=== PATIENT | female | born 1990 | race African-American/Black ===

== ENCOUNTER 2017-07-05 05:43 | Inpatient (IN) | payer BC ==
[2017-07-05] MEDS ORDERED: Lactated Ringer's 1,000 ML IV SCH ×3 (06:19→12:46)
[2017-07-05] MEDS ORDERED: Promethazine HCl 25 MG/ML VIAL IM PRN ×2 (06:19→11:15)
[2017-07-05] MEDS ORDERED: Ondansetron HCl/PF 4 MG/2 ML Vial IVP PRN ×3 (06:19→11:22)
[2017-07-05 06:28] VITALS: BMI 48.0
[2017-07-05] MEDS ORDERED: CEFAZOLIN/Water 2 GM/20 ML SYRINGE SLOW IVP SCH (06:30)
[2017-07-05] MEDS ORDERED: Bicitra 30 ML UDCUP PO SCH (06:30)
[2017-07-05 06:51] LABS: Hemoglobin 11.2 g/dL (12.0-16.0); Mean Corpuscular HGB CONC 33.2 g/dL (32.0-36.0); Mean Corpuscular Hemoglobin 28.9 pg (27.0-31.0); Mean Corpuscular Volume 87.1 fl (81.0-99.0); Mean Platelet Volume 8.4 fL (7.4-10.4); Platelet Count 221 thou/uL (130-400); RBC Distribution Width 13.5 % (11.5-14.5); Red Blood Cell (RBC) Count 3.89 mill/uL (4.20-5.40); White Blood Cell (WBC) Count 6.1 thou/uL (4.8-10.8)
[2017-07-05] MEDS ORDERED: Morphine PF 1 MG/ML SYR ONE (07:18)
[2017-07-05] MEDS ORDERED: Oxytocin 10 UNITS/ML VIAL ONE (07:19)
[2017-07-05] MEDS ORDERED: PHENYLEPHRINE-NS 100 MCG/ML 10 ML SYRINGE ONE ×2 (07:19→11:54)
[2017-07-05] MEDS ORDERED: ePHEDrine/0.9% NaCl/PF SYRINGE 50 mg/10 ml ONE ×2 (07:19→11:54)
[2017-07-05] MEDS ORDERED: Ondansetron HCl/PF 4 MG/2 ML Vial ONE ×2 (07:19→11:54)
[2017-07-05] MEDS ORDERED: Ropivacaine 0.5% HCl/PF (150 MG/30 ML VIAL) ONE (07:20)
[2017-07-05 07:23] LABS: HBSAg Index 0.19 S/CO (0-0.99); Hep B Surf Ag Non-Reactive S/CO (NonReactive); Syphilis Antibody Nonreactive (Nonreactive); Syphilis Antibody Index 0.05 S/CO (<1.00 Non-Reactive)
[2017-07-05] MEDS ORDERED: Bupivacaine 0.75% W/DEXTROSE 8.25% 2 ML AMP ONE ×2 (07:23→07:55)
[2017-07-05] MEDS ORDERED: CEFAZOLIN 1 GM VIAL ONE (07:24)
[2017-07-05] MEDS ORDERED: Lidocaine 2% PF 5 ML VIAL ONE (07:26)
[2017-07-05] MEDS ORDERED: Lidocaine 1% PF 5 ML VIAL ONE (07:36)
[2017-07-05] MEDS ORDERED: Ketorolac Tromethamine 30 MG/ML VIAL ONE ×2 (08:35→11:54)
[2017-07-05] MEDS ORDERED: LR / Pitocin 40 units/1000 ml 1,000 ML ONE (09:00)
[2017-07-05] MEDS ORDERED: Promethazine HCl 25 MG SUPP PR PRN (11:15)
[2017-07-05] MEDS ORDERED: Eucerin (Mineral Oil/Petrolatum,White) 30 gm Jar TOP PRN (11:15)
[2017-07-05] MEDS ORDERED: Communication Order-Pharmacy FS SCH (11:15)
[2017-07-05] MEDS ORDERED: Naloxone HCl 0.4 mg/ml Vial IV PRN (11:15)
[2017-07-05] MEDS ORDERED: Naloxone HCl 0.4 mg/ml Vial IVP PRN ×2 (11:15)
[2017-07-05] MEDS ORDERED: diphenhydrAMINE 50 MG/ML VIAL IVP PRN (11:15)
[2017-07-05] MEDS ORDERED: Meperidine HCl/PF 25 MG/ML VIAL SLOW IVP PRN (11:22)
[2017-07-05] MEDS ORDERED: Meperidine HCl/PF 25 MG/ML VIAL ONE (11:31)
[2017-07-05] MEDS ORDERED: diphenhydrAMINE 25 MG CAP PO PRN (12:46)
[2017-07-05] MEDS ORDERED: Lanolin Ointment 7 GM TUBE TOP PRN (12:46)
[2017-07-05] MEDS ORDERED: Adacel (T-DAP) 0.5 ML VIAL IM ONE (12:46)
[2017-07-05] MEDS: Simethicone Chewable 80 MG TAB PO PRN (21:38)
[2017-07-05] MEDS ORDERED: Zolpidem Tartrate 5 MG TAB PO PRN (23:15)
[2017-07-05] MEDS ORDERED: HYDROcodone/Acetaminophen 5/325 mg Tablet PO PRN (23:15)
[2017-07-06] MEDS: Ketorolac Tromethamine 30 MG/ML VIAL IVP PRN ×2 (00:15→06:10)
[2017-07-06] MEDS: Prenatal Vitamin 1 TAB PO SCH (09:45)
[2017-07-06] MEDS: HYDROcodone/Acetaminophen 5/325 mg Tablet PO PRN ×2 (14:20→21:52)
--- NOTE | 2017-07-06 14:35 | DN ---
DATE OF SERVICE: 07/05/2017 ADMITTING DIAGNOSES: 1. A 27-year-old -[place] female, G2, P0-1-0-1, presents at 39 weeks for a scheduled repeat low transverse section. 2. History of a primary low transverse section at 35 and 4 for preeclampsia. 3. GBS negative. 4. Elevated body mass index of 50.2. 5. Anemia of . POSTOPERATIVE DIAGNOSES: 1. A 27-year-old -[place] female, G2, P0-1-0-1, presents at 39 weeks for a scheduled repeat low transverse section. 2. History of a primary low transverse section at 35 and 4 for preeclampsia. 3. GBS negative. 4. Elevated body mass index of 50.2. 5. Anemia of . 6. Live born male infant weighing 8 pounds 1 ounce with Apgars of 9 and 9 at 1 and 5 minutes respect ively. ANESTHESIA: Spinal. ESTIMATED BLOOD LOSS: 500 mL. IV FLUIDS: Crystalloid. SPECIAL MEDICATIONS: Ancef 3 grams IV school lunch monitor to the OR. CLINICAL HISTORY: This patient is a 27-year-old G2, P0-1-0-1, who presented to my office for obstetr unity psychiatric care [place] [facility]. She had a history of a previous premature delivery at 35 weeks and 4 days of a little gir l due to complications with preeclampsia on magnesium with severe blood pressures and edema. The pat ient opted for a repeat section at 39 weeks. She was monitored throughout the and had a normal 24-hour urine. She was kept on baby aspirin after 12 weeks gestation and was screened for elevated blood pressures or signs of preeclampsia, none were found on a repetitive and serial radha ting. The patient did have an elevated body mass index of 50 at the time of the beginning of the pre gnancy. She stayed within her weight gain goals of less than 5 pounds with only 5 pounds weight gain for the entire . The patient was also noted to have a slight anemia of without a ny platelet disorders. The risks, benefits and possible complications of a repeat section w ere discussed and the patient wished to proceed. DETAILS OF PROCEDURE: The patient was taken to the operating room where spinal anesthesia was obtain ed. She was laid in the supine position with a leftward tilt and doptones were retrieved on the baby at 125. After testing for adequate anesthesia and proper draping, the incision was made in a Pfanne nstiel manner, retracting and removing the old scar with a scalpel and this incision was then taken d own to the fascia where the fascia was nicked in the midline and extended bilaterally with sharp and blunt dissection. Bleeding was corrected with Bovie cautery. The rectus muscles were then released from the fascia with a grasp of the superior border with the Ciera clamps x2. This proved somewhat difficult because of the scarring from her previous surgery. The patient did have omentum attached t o her fascia as well as to the peritoneum. Once the omentum was taken off of the rectal sheath and t he rectus muscles were identified. The separation in the midline was performed and this was extended with a combination of sharp and blunt dissection. The bladder blade was then placed in a sweep of t he surgeon's hand over the anterior surface of the uterus was performed with no adhesions noted on th e anterior surface of the uterus. The bladder flap was then created in the lower uterine segment and the bladder was reflected downward. The incision was then made in the lower uterine segment with th e scalpel and carried down to the level of the amnion. The amnion was then breached and clear fluid was noted. This incision was extended and the surgeon's hand was placed inside the uterus. The feta l vertex was brought through the incision and delivered with traction on the fundus. The anterior sh oulder followed by the posterior shoulder followed by the remainder of the 's body was delivere d. The cord was doubly clamped and cut and the was shown to the parents and handed off to the nursery at the attendance to the delivery. There was a significant amount of Plain Dealing's jelly around the umbilical cord in several locations. A cord blood was obtained and the placenta was delivered m anually intact with a 3-vessel cord. The uterus was then exteriorized and the uterus was closed with a 2-0 Vicryl in a running locking fashion with excellent hemostasis. A second imbricating layer was then performed over this one, and then the bladder flap was reapproximated. The gutters were then c leansed of all debris and Seprafilm was then placed over the anterior surface of the uterus. The melvin samuel was then placed back inside the abdomen after noting normal adnexal anatomy. The Ciera clamps w ere then again used to elevate the rectus sheath and the peritoneum was grasped with two Kellys. Thi s was closed in a running fashion and then the muscles were reapproximated with [id number] sutur es. The rectus fascia was then closed in a running fashion to the midline from both sides. Then, th e midline was tied together closing the fascial sheath. Once this was done, copious irrigation was p erformed on the subcutaneous tissues and then any bleeding was corrected with Bovie cautery. The sub cutaneous layer was then closed with multiple interrupted 2-0 plain gut sutures with closure of the d ead space to prevent wound dehiscence later. The skin was then closed in a running fashion with a 4- 0 Monocryl and the skin was then reinforced with Steri-Strips and Mastisol. A pressure dressing was placed over this incision with a Tegaderm and Telfa pads padded with 4 x 4s and the patient was then cleansed and redraped and sent to the recovery room in satisfactory condition with her infant. Again , the was a male weighing 8 pounds 1 ounce with Apgars of 9 and 9 at 1 and 5 minutes respectiv alma delia. There were no other issues surrounding this delivery and all needle, sponge, lap, and instrumen t counts were correct x2 at the end of the procedure.
[2017-07-06] MEDS: Docusate Calcium (SURFAK) 240 MG CAP PO PRN (21:52)
[2017-07-07] MEDS: Simethicone Chewable 80 MG TAB PO PRN (05:05)
[2017-07-07] MEDS: HYDROcodone/Acetaminophen 5/325 mg Tablet PO PRN (05:05)
[2017-07-07 08:16] VITALS: BP 126/70; TEMP 98.6
[2017-07-07] MEDS: Prenatal Vitamin 1 TAB PO SCH (09:24)
[2017-07-07] MEDS: Docusate Calcium (SURFAK) 240 MG CAP PO PRN (09:24)
== END 2017-07-07 14:30 | disposition home or self-care (01) | DRG 765 ==
LOC: L&D 05:43 → 3SW 12:03
PROVIDERS: ADMIT Obstetrics & Gynecology; ATTEND Obstetrics & Gynecology
PROC: 10D00Z1 Extraction of Products of Conception, Low, Open Approach (ICD-10-PCS; principal; 2017-07-05)
DX: O34.211 Maternal care for low transverse scar from previous cesarean delivery (principal); Z68.43 Body mass index [BMI] 50.0-59.9, adult; O99.02 Anemia complicating childbirth; Z3A.39 39 weeks gestation of pregnancy; Z37.0 Single live birth; O99.214 Obesity complicating childbirth
CPT/HCPCS: 51702; 85027; 86780; 86850; 86900; 86901; 87340; J0690; J1885; J2001; J2175; J2274; J2310; J2405; J2590; J2795; J3490